=== PATIENT | male | born 1945 ===

== ENCOUNTER 2016-04-13 04:04 | Inpatient (IN) | payer OTHER ==
[2016-03-31 18:36] LABS: HEMATOCRIT 41.2 % (40.0-51.0); HEMOGLOBIN 14.1 g/dL (13.6-17.8)
[2016-03-31 21:46] LABS: BUN (BLOOD UREA NITROGEN) 13 MG/DL (6-23); CHLORIDE, SERUM 104 MMOL/L (96-112); CO2 (CARBON DIOXIDE) 30 MMOL/L (24-34); GFR AFRICAN AMERICAN 89 ML/MIN (>=60); GFR NON AFRICAN AMERICAN 77 ML/MIN (>=60); GLUCOSE, SERUM 182 MG/DL (60-99); POTASSIUM, SERUM 4.1 MMOL/L (3.5-5.3); SODIUM, SERUM 142 MMOL/L (135-148)
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
--- NOTE | ~2016-04-13 | OP ---
Record Of Operation [facility] [address] [place]. [address] NAME: BRENDON SCHMITT : 49 STATUS : ADM IN PAT#: [id number] AGE: 70 ADM/REG DATE : 04/13/16 MR#: [id number] REPORT SERV DATE: 04/13/16 DICTATED BY: STANISLAV MATUTE DATE: 04/13/16 REPORT STATUS : Draft TRANSCRIBED BY: MODL DATE: 04/13/16 DATE OF PROCEDURE: 04/13/2016 PREOPERATIVE DIAGNOSIS: L4-5 spondylolisthesis, L4-5 disk disease and stenosis, and lumbar radiculopathy. POSTOPERATIVE DIAGNOSIS: L4-5 spondylolisthesis, L4-5 disk disease and stenosis, and lumbar radiculopathy. PROCEDURE: L4-5 open laminectomy and bilateral foraminotomies (this was done for severe stenosis in addition to that needed for the interbody fusion portion of the case). L4-L5 posterolateral fusion bilaterally, L4-L5 segmental spinal instrumentation using Medtronic pedicle screws, use of local morcellized autograft-allograft bone matrix, neuromonitoring, intraoperative O-arm CT scan with computer navigation. Transforaminal lumbar interbody fusion L4-L5, placement of Medtronic PEEK interbody spacer L4-L5. SURGEON: Stanislav Matute DO. ANESTHESIA: General. ESTIMATED BLOOD LOSS: 100 mL. COMPLICATIONS: None. INDICATIONS: The patient is a pleasant, 70-year-old with intractable back and leg pain, failed conservative treatment. After discussion of risks and benefits, elected to proceed with surgical intervention. PROCEDURE IN DETAIL: I identified the patient in the holding area. Consent was obtained. Went to the operating room. Underwent general anesthesia with endotracheal intubation. Turned to the prone position, prepped and draped in the usual sterile fashion. Operative safety pause was performed, then we proceeded. A midline longitudinal incision was made over the L4-5 level, taken down to the fascial layer. Paraspinous muscles subperiosteally elevated to the tips of transverse processes. Self-retaining retractors were placed. O-arm registration frame was placed on the spinous process. O-arm was brought in for intraoperative CT scan. Computer registration materials were verified. Under computer guidance, pedicle screws from Medtronic were placed at L4 and L5 bilaterally. O-arm was brought back in to verify good placement of instrumentation. Rongeur was used root was used to remove spinous processes and underlying lamina at the L4-L5 level. Kerrison removed remaining lamina, underlying ligamentum flavum. Performed foraminotomies with decompression of the L4-L5 nerves bilaterally. Partial facetectomy on the right was performed. Disk space was identified and prepared with curettes, endplate cutters, and a rasp. Trial spacers implanted and then a Medtronic PEEK interbody spacer with allograft bone matrix, as well as packed local morcellized autograft and allograft were placed at the L4-L5 level. Rods were placed over the screws at L4-5, final tightened under compression. High-speed bur was used to decorticate the remaining bony surfaces at L4-L5. Irrigation performed. Record Of Operation [facility] [id number] [place]. [address] NAME: BRENDON SCHMITT : 49 STATUS : ADM IN PAT#: [id number] AGE: 70 ADM/REG DATE : 04/13/16 MR#: [id number] REPORT SERV DATE: 04/13/16 DICTATED BY: STANISLAV MATUTE DATE: 04/13/16 REPORT STATUS : Draft TRANSCRIBED BY: MODL DATE: 04/13/16 Hemostasis achieved. A gram of vancomycin powder sprinkled over the surgical wound. A subfascial drain was placed. Layered closure performed. Sterile dressings applied. The patient was awoken and extubated, taken to the recovery room in stable condition. OPERATIVE FINDINGS: L4-5 severe disk disease, severe stenosis, no sustained neuromonitoring alerts. RADHA/SEYMOUR Stanislav Matute DO / [id number] CC: Stanislav Matute DO
--- NOTE | ~2016-04-13 | PREOPHP ---
PreOp History and Physical [facility] [address] [place]. [address] NAME: BRENDON SCHMITT : 49 STATUS : ADM IN PAT#: [id number] AGE: 70 ADM/REG DATE : 04/13/16 MR#: [id number] REPORT SERV DATE: 04/13/16 DICTATED BY: STANISLAV SYED DATE: 04/13/16 REPORT STATUS : Draft TRANSCRIBED BY: SEYMOUR DATE: 04/13/16 CHIEF COMPLAINT: Back pain and left leg pain. HISTORY OF PRESENT ILLNESS: The patient is a 70-year-old with intractable back and left lower extremity pain with paresthesias and left leg weakness. He has failed multiple attempts at conservative treatment including epidural injections, physical therapy, medications, and home exercise program. After discussion of risks and benefits, he elected to proceed with surgical intervention. REVIEW OF SYSTEMS: He denies chest pain, shortness of breath, and bowel or bladder changes. ALLERGIES: DENIED. MEDICATIONS: Home medications include Tylenol, Fluzone, gabapentin, glimepiride, hydrocodone, hydrocortisone cream, ibuprofen metformin, and naproxen. FAMILY HISTORY: Noncontributory. PAST MEDICAL HISTORY: Includes diabetes, fibromyalgia, and lupus. PHYSICAL EXAMINATION: VITAL SIGNS: Height 6 feet 2 inches. Weight 200 pounds. BMI 25.7. GENERAL: The patient is healthy appearing and in no acute distress at this time. PSYCHIATRIC: Alert and oriented x3. Normal mood and affect. Gait is antalgic. VASCULAR: No extremity swelling. SPINE: Decreased lumbar motion. HEART: Regular rate and rhythm. LUNGS: Clear to auscultation. ABDOMEN: Soft, nontender, and nondistended with good bowel sounds. BREASTS/RECTAL: Both deferred. NEUROLOGIC: Strength in the extremities remains 5/5 for the lower extremities. No focal deficits. IMAGING: I have reviewed the MRI scan of the lumbar spine. The patient does have L4-L5 spondylolisthesis with disk herniation and severe stenosis. ASSESSMENT: Lumbar disk disease, stenosis, spondylolisthesis, and right lumbar radiculopathy, failed conservative treatment. PLAN: The patient presents today for surgical intervention. Consent was obtained. All questions were answered. He is ready to proceed with surgery. RADHA/SEYMOUR PreOp History and Physical [address] [place]. [place]. [address] NAME: BRENDON SCHMITT : 49 STATUS : ADM IN PAT#: [id number] AGE: 70 ADM/REG DATE : 04/13/16 MR#: [id number] REPORT SERV DATE: 04/13/16 DICTATED BY: STANISLAV SYED DATE: 04/13/16 REPORT STATUS : Draft TRANSCRIBED BY: SEYMOUR DATE: 04/13/16 Stanislav Syed DO / [id number]
[~2016-04-13 04:04] MED LIST: AMARYL4 PO; ASAB PO; GLUCOPHAGE1000 MG PO; IBU800 PO; NEUR300 PO; NORCO1 TA2 PO
[2016-04-13 09:53] LABS: BASOPHILS 0.4 %; BASOPHILS ABSOLUTE 0.03 10/3/uL (0.0-0.16); EOSINOPHILS ABSOLUTE 0.25 10/3/uL (0.0-0.53); HEMOGLOBIN 11.4 g/dL (13.6-17.8); IMMATURE GRANULOCYTES 0.5 %; IMMATURE GRANULOCYTES ABSOLUTE 0.04 10/3/uL (0.0-0.11); LYMPHOCYTES 41.1 %; MEAN CORPUSCULAR HEMOGLOB 30.2 pg (26.0-34.0); MEAN PLATELET VOLUME 11.4 fL (9.2-13.0); MONOCYTES 8.9 %; MONOCYTES ABSOLUTE 0.74 10/3/uL (0.21-1.20); NEUTROPHILS 46.1 %; NEUTROPHILS ABSOLUTE 3.81 10/3/uL (2.02-8.40); PLATELET COUNT 179 10/3/uL (150-400); RED CELL COUNT 3.77 10/6/uL (4.7-6.1); WHITE BLOOD CELLS 8.3 10/3/uL (4.5-10.5)
[2016-04-13 09:55] LABS: HEMATOCRIT 33.5 % (40.0-51.0); MANUAL DIFF NO %; MEAN CORPUSCULAR VOLUME 88.9 fL (80-100)
[2016-04-13 10:07] LABS: BUN (BLOOD UREA NITROGEN) 12 MG/DL (6-23); CALCIUM, SERUM 8.2 MG/DL (8.5-10.4); CHLORIDE, SERUM 110 MMOL/L (96-112); CO2 (CARBON DIOXIDE) 26 MMOL/L (24-34); CREATININE 0.89 MG/DL (0.70-1.30); GFR AFRICAN AMERICAN 102 ML/MIN (>=60); GFR NON AFRICAN AMERICAN 88 ML/MIN (>=60); GLUCOSE, SERUM 153 MG/DL (60-99); POTASSIUM, SERUM 3.6 MMOL/L (3.5-5.3); SODIUM, SERUM 144 MMOL/L (135-148)
[2016-04-14 04:22] LABS: BASOPHILS 0.2 %; BASOPHILS ABSOLUTE 0.02 10/3/uL (0.0-0.16); EOSINOPHILS 1.8 %; EOSINOPHILS ABSOLUTE 0.15 10/3/uL (0.0-0.53); HEMATOCRIT 33.7 % (40.0-51.0); HEMOGLOBIN 11.8 g/dL (13.6-17.8); IMMATURE GRANULOCYTES 0.1 %; IMMATURE GRANULOCYTES ABSOLUTE 0.01 10/3/uL (0.0-0.11); LYMPHOCYTES 18.7 %; LYMPHOCYTES ABSOLUTE 1.53 10/3/uL (0.67-4.30); MEAN CORPUSCULAR HEMOGLOB 31.5 pg (26.0-34.0); MEAN CORPUSCULAR VOLUME 89.9 fL (80-100); MEAN PLATELET VOLUME 11.4 fL (9.2-13.0); MONOCYTES 13.7 %; MONOCYTES ABSOLUTE 1.12 10/3/uL (0.21-1.20); NEUTROPHILS 65.5 %; NEUTROPHILS ABSOLUTE 5.37 10/3/uL (2.02-8.40); PLATELET COUNT 159 10/3/uL (150-400); RBC DISTRIBUTION WIDTH 12.7 % (12.0-16.0); RED CELL COUNT 3.75 10/6/uL (4.7-6.1); WHITE BLOOD CELLS 8.2 10/3/uL (4.5-10.5)
[2016-04-14 04:24] LABS: MANUAL DIFF NO %
[2016-04-14 04:37] LABS: BUN (BLOOD UREA NITROGEN) 9 MG/DL (6-23); CALCIUM, SERUM 8.5 MG/DL (8.5-10.4); CHLORIDE, SERUM 102 MMOL/L (96-112); CO2 (CARBON DIOXIDE) 27 MMOL/L (24-34); CREATININE 0.91 MG/DL (0.70-1.30); GFR AFRICAN AMERICAN 100 ML/MIN (>=60); GFR NON AFRICAN AMERICAN 86 ML/MIN (>=60); GLUCOSE, SERUM 172 MG/DL (60-99); POTASSIUM, SERUM 3.7 MMOL/L (3.5-5.3); SODIUM, SERUM 138 MMOL/L (135-148)
[2016-04-15] MEDS ORDERED: PCET PO (17:03)
[2016-04-15] MEDS ORDERED: FLEX PO (17:04)
== END 2016-04-15 17:29 | disposition home or self-care (01) | DRG 460 ==
LOC: SDC/OF 04:04 → PACU 09:36 → 3SO 10:36
PROVIDERS: Orthopaedic Surgery
PROC: 0SG00AJ Fusion of Lumbar Vertebral Joint with Interbody Fusion Device, Posterior Approach, Anterior Column, Open Approach (ICD-10-PCS; principal; 2016-04-13 06:45)
PROC: 4A11X4G Monitoring of Peripheral Nervous Electrical Activity, Intraoperative, External Approach (ICD-10-PCS; 2016-04-13 06:45)
DX: M51.16 Intervertebral disc disorders with radiculopathy, lumbar region (principal); G62.9 Polyneuropathy, unspecified; E11.9 Type 2 diabetes mellitus without complications; F17.210 Nicotine dependence, cigarettes, uncomplicated
CPT/HCPCS: 36415; 80048; 82962; 83036; 85014; 85018; 85025; 87641; 88304; 88311; 93005; 97116-GP; 97161-GP; A9270-GY; C1713; J0690; J1170; J1644; J2250; J2270; J2405; J2710; J3010; J3370